=== PATIENT | female | born 1965 | race Caucasian/White ===

== ENCOUNTER → 2016-05-19 | Outpatient (CLI) | payer OTHER, BC ==
[~2016-05-19] MED LIST: CALCTAB5 PO; LEVO50TA PO; LEVO75TA PO; VALA1TAB PO
--- NOTE | 2016-05-19 13:58 | DIAGNOSTIC IMAGING REPORT ---
RIGHT HAND MIN 3 VIEWS ROUTINE CLINICAL HISTORY: Right hand pain COMPARISON: None. DISCUSSION: No fractures or dislocations are visualized. There are no erosive or destructive changes. IMPRESSION: No significant bony abnormalities. Electronically signed by: Dilip Chen M.D. 05/19/2016 1:57 PM Dictated Date/Time: 05/19/2016 1:56 PM
== END | disposition home or self-care (01) ==
LOC: C.RAD1850 13:01
PROVIDERS: ATTEND Emergency Medicine
DX: M79.641 Pain in right hand (principal)

== ENCOUNTER → 2016-06-25 | Outpatient (CLI) | payer BC | END | disposition home or self-care (01) | LOC: C.PAPS 12:25 | PROVIDERS: ATTEND Obstetrics & Gynecology | DX: Z01.419 Encounter for gynecological examination (general) (routine) without abnormal findings (principal) ==

== ENCOUNTER → 2016-07-10 | Outpatient (CLI) | payer OTHER, BC ==
--- NOTE | 2016-07-10 12:52 | MAMMOGRAPHY REPORT ---
BILATERAL DIGITAL SCREENING MAMMOGRAM WITH CAD: 07/10/2016 CLINICAL HISTORY: Routine screening. Patient has no complaints. TECHNIQUE: Current study was also evaluated with a Computer Aided Detection (CAD) system. Bilatera l CC and MLO views including implant displaced views were obtained. COMPARISON: Comparison is made to exams dated: 07/08/2015 mammogram, 07/05/2014 mammogram, 06/23/2013 m ammogram, 06/22/2012 mammogram, 06/17/2011 mammogram, and 06/09/2010 mammogram - [facility] nt. BREAST COMPOSITION: The tissue of both breasts is heterogeneously dense, which may obscure small ma sses. FINDINGS: No suspicious masses, calcifications, or areas of architectural distortion are noted in e ither breast. There has been no significant interval change compared to prior exams. Bilateral subp ectoral saline implants are stable in appearance. IMPRESSION: ACR BI-RADS CATEGORY 2: BENIGN There is no mammographic evidence of malignancy. A 1 year screening mammogram is recommended. The p atient will receive written notification of the results. Approximately 10% of breast cancers are not detected with mammography. A negative mammographic repor t should not delay biopsy if a clinically suggestive mass is present. Juanita Jones M.D. ah/:07/10/2016 07:46:49 Manager Test: Shawnee SAUNDERS(Wyatt)(M), [facility] letter sent: Normal 1/2 BI-RADS Code: ACR BI-RADS Category 2: Benign
== END | disposition home or self-care (01) ==
LOC: C.MAMM 07:29
PROVIDERS: ATTEND Obstetrics & Gynecology
DX: Z12.31 Encounter for screening mammogram for malignant neoplasm of breast (principal)

== ENCOUNTER → 2017-01-18 | Outpatient (CLI) | payer BC ==
--- NOTE | 2017-01-18 08:16 | DIAGNOSTIC IMAGING REPORT ---
ULTRASOUND EXAM AAA SCREEN CLINICAL HISTORY: Abdominal bloating. COMPARISON STUDY: No previous studies for comparison. FINDINGS: The caliber of the abdominal aorta is normal. The proximal abdominal aorta measures 2.5 cm in caliber. The mid abdominal aorta measures 2 cm and the distal abdominal aorta measures 1.8 cm. The caliber of the proximal bilateral common iliac arteries is normal. IMPRESSION: No abdominal aortic aneurysm. Electronically signed by: Martín Barfield M.D. 01/18/2017 8:15 AM Dictated Date/Time: 01/18/2017 8:14 AM
== END | disposition home or self-care (01) ==
LOC: C.ULTRBC 07:39
PROVIDERS: ATTEND Physician Assistant
DX: R14.0 Abdominal distension (gaseous) (principal)

== ENCOUNTER 2017-03-31 20:33 | Emergency (ER) | payer BC, OTHER ==
[~2017-03-31] VITALS: Ht 165.1 cm; Wt 59.6 kg
[2017-03-31 20:53] VITALS: TEMP 36.7; Ht 165.1 cm; Wt 59.6 kg
[2017-03-31] MEDS ORDERED: ALUMINUM/MAGNESIUM SUSP 30 ML UDC PO STA (22:16)
[2017-03-31] MEDS ORDERED: LIDOCAINE HCL 2% VISC SOLN 20 ML UDC PO STA (22:16)
--- NOTE | 2017-03-31 22:42 | DIAGNOSTIC IMAGING REPORT ---
CHEST ONE VIEW PORTABLE CLINICAL HISTORY: CHEST PAIN dyspnea COMPARISON STUDY: No previous studies for comparison. FINDINGS: The bones soft tissues and hemidiaphragms are normal. The cardiomediastinal silhouette is normal. The lungs are clear. The pulmonary vasculature is normal. IMPRESSION: Negative chest. The above report was generated using voice recognition software. It may contain grammatical, syntax or spelling errors. Electronically signed by: Sandor Dewitt M.D. 03/31/2017 10:41 PM Dictated Date/Time: 03/31/2017 10:41 PM
[2017-03-31 22:57] LABS: BASO % 0.5 %; BASO ABS # 0.03 K/uL (0-0.2); EOS % 4.4 %; EOS ABS # 0.25 K/uL (0-0.5); HEMATOCRIT 40.3 % (37-47); HEMOGLOBIN 13.9 g/dL (12.0-16.0); IG# 0.01 K/uL (0.00-0.02); LYMPH % 44.6 %; LYMPH ABS # 2.54 K/uL (1.2-3.4); MEAN CELL VOLUME 88.8 fL (80-100); MEAN CORPUSCULAR HEMOGLOBIN 30.6 pg (25-34); MEAN CORPUSCULAR HGB CONC 34.5 g/dl (32-36); MONO % 8.3 %; MONO ABS # 0.47 K/uL (0.11-0.59); NEUT ABS # 2.39 K/uL (1.4-6.5); PLATELET COUNT 210 K/uL (130-400); RED CELL DISTRIBUTION WIDTH SD 42.6 fL (36.4-46.3); WHITE BLOOD COUNT 5.69 K/uL (4.8-10.8)
[2017-03-31 23:17] LABS: ALBUMIN 4.4 gm/dl (3.4-5.0); ALT/SGPT 21 U/L (12-78); AST/SGOT 14 U/L (15-37); BLOOD UREA NITROGEN 18 mg/dl (7-18); CALCIUM 9.7 mg/dl (8.5-10.1); CARBON DIOXIDE 28 mmol/L (21-32); CREATININE 1.12 mg/dl (0.60-1.20); GLUCOSE 97 mg/dl (70-99); LIPASE 211 U/L (73-393); POTASSIUM 3.8 mmol/L (3.5-5.1); SODIUM 139 mmol/L (136-145)
[2017-03-31 23:28] LABS: ALKALINE PHOSPHATASE 103 U/L (45-117); TOTAL PROTEIN 8.6 gm/dl (6.4-8.2)
[2017-04-01] MEDS ORDERED: PANTOprazole SOD 40 MG TAB PO STA (00:02)
[2017-04-01] MEDS ORDERED: PANT40TA PO (00:14)
[2017-04-01 00:27] VITALS: BP 118/66; PULSE 77; O2SAT 97
--- NOTE | 2017-04-01 04:27 | EMERGENCY ROOM VISIT NOTE ---
History First contact with patient: 22:04 Chief Complaint: RESPIRATORY PROBLEMS Stated Complaint: BREATHING ISSUES, SKIPPING HEART BEATS History of Present Illness The patient is a 51 year old female who presents to the Emergency Room with complaints of intermittent skipped beats since November 2016 had a Holter monitor that showed PVCs along with occasional dyspnea for the past day. Patient also complains of epigastric discomfort with bloating for the past few days. She has been under more stress lately. Patient denies chest pain, fevers , cough, recent illness, vomiting, diarrhea, back pain, leg pain or swelling, recent travel, hormone replacement. No family history of blood clots or heart disease. No prior stress test or echo. She has an appointment next week with cardiology for her skipped beats. No excessive caffeine use. No supplement use. Review of Systems An 10 system review of systems was completed with positives and pertinent negatives listed in the HPI. Past Medical/Surgical History Hypothyroidism, tubal ligation, breast augmentation Social History Smoking Status: Never Smoker Smokeless Tobacco Use: No Drug Use: none Marital Status: Housing Status: lives with family Current/Historical Medications Scheduled Levothyroxine Sodium (Synthroid), 50 MCG PO DAILY Pantoprazole (Protonix), 40 MG PO DAILY Physical Exam Vital Signs Date Time Temp Pulse Resp B/P (MAP) Pulse Ox O2 Delivery O2 Flow Rate FiO2 04/01/17 00:27 77 18 118/66 97 03/31/17 23:14 77 20 118/75 99 Room Air 03/31/17 20:53 36.7 67 20 135/75 100 Room Air Physical Exam VITALS: Vitals are noted on the nurse's note and reviewed by myself. Vital signs stable. GENERAL: Pleasant female, in no acute distress, nondiaphoretic, well-developed well-nourished. SKIN: The skin was without rashes, erythema, edema, or bruising. There is no tenting of the skin. Capillary reflex less than 2 seconds. HEAD: Normocephalic atraumatic. EARS: External auditory canals clear EYES: Pupils equal round and reactive to light and accommodation. Conjunctivae without injection, sclerae without icterus. NOSE: Patent, turbinates without inflammation or discharge. MOUTH: Mucous membranes moist. Pharynx without erythema or exudate. Uvula midline. Airway patent. Tongue does not deviate. NECK: Supple without nuchal rigidity. No lymphadenopathy. No thyromegaly. Cervical spine is nontender. No JVD. HEART: Regular rate and rhythm without murmurs gallops or rubs. LUNGS: Clear to auscultation bilaterally without wheezes, rales or rhonchi. No dullness to percussion. No retractions or accessory muscle use. ABDOMEN: Positive bowel sounds x 4. Normal tympanic percussion. Soft, nontender, without masses or organomegaly. Wilson sign negative. No guarding or rebound tenderness. MUSCULOSKELETAL: No muscle atrophy, erythema, or edema noted. NEURO: Patient was alert and oriented to person place and time. . No focal neurological deficits. Medical Decision & Procedures Laboratory Results 03/31/17 22:16 Red Blood Count 4.54, Mean Corpuscular Volume 88.8, Mean Corpuscular Hemoglobin 30.6, Mean Corpuscular Hemoglobin Concent 34.5, Mean Platelet Volume 11.0, Neutrophils (%) (Auto) 42.0, Lymphocytes (%) (Auto) 44.6, Monocytes (%) (Auto) 8.3, Eosinophils (%) (Auto) 4.4, Basophils (%) (Auto) 0.5, Neutrophils # (Auto) 2.39, Lymphocytes # (Auto) 2.54, Monocytes # (Auto) 0.47, Eosinophils # (Auto) 0.25, Basophils # (Auto) 0.03 03/31/17 22:16 Test 03/31/17 22:16 03/31/17 22:42 White Blood Count 5.69 K/uL (4.8-10.8) Red Blood Count 4.54 M/uL (4.2-5.4) Hemoglobin 13.9 g/dL (12.0-16.0) Hematocrit 40.3 % (37-47) Mean Corpuscular Volume 88.8 fL (80-100) Mean Corpuscular Hemoglobin 30.6 pg (25-34) Mean Corpuscular Hemoglobin Concent 34.5 g/dl (32-36) Platelet Count 210 K/uL (130-400) Mean Platelet Volume 11.0 fL (7.4-10.4) Neutrophils (%) (Auto) 42.0 % Lymphocytes (%) (Auto) 44.6 % Monocytes (%) (Auto) 8.3 % Eosinophils (%) (Auto) 4.4 % Basophils (%) (Auto) 0.5 % Neutrophils # (Auto) 2.39 K/uL (1.4-6.5) Lymphocytes # (Auto) 2.54 K/uL (1.2-3.4) Monocytes # (Auto) 0.47 K/uL (0.11-0.59) Eosinophils # (Auto) 0.25 K/uL (0-0.5) Basophils # (Auto) 0.03 K/uL (0-0.2) RDW Standard Deviation 42.6 fL (36.4-46.3) RDW Coefficient of Variation 13.0 % (11.5-14.5) Immature Granulocyte % (Auto) 0.2 % Immature Granulocyte # (Auto) 0.01 K/uL (0.00-0.02) Anion Gap 8.0 mmol/L (3-11) Est Creatinine Clear Calc Drug Dose 52.3 ml/min Estimated GFR () 64.9 Estimated GFR (Non- 56.0 BUN/Creatinine Ratio 15.7 (10-20) Calcium Level 9.7 mg/dl (8.5-10.1) Magnesium Level 2.3 mg/dl (1.8-2.4) Total Bilirubin 0.7 mg/dl (0.2-1) Direct Bilirubin 0.2 mg/dl (0-0.2) Aspartate Amino Transf (AST/SGOT) 14 U/L (15-37) Alanine Aminotransferase (ALT/SGPT) 21 U/L (12-78) Alkaline Phosphatase 103 U/L (45-117) Troponin I < 0.015 ng/ml (0-0.045) Total Protein 8.6 gm/dl (6.4-8.2) Albumin 4.4 gm/dl (3.4-5.0) Lipase 211 U/L (73-393) Thyroid Stimulating Hormone (TSH) 1.090 uIu/ml (0.300-4.500) Bedside D-Dimer 325 ng/mlFEU (0-450) Bedside Troponin I < 0.030 ng/ml (0-0.045) Medications Administered Medications (Trade) Dose Ordered Sig/Donna Route Start Time Stop Time Status Last Admin Dose Admin Lidocaine HCl (Viscous Lidocaine 2% Soln) 10 ml NOW STAT PO 03/31/17 22:16 2/14/18 22:17 DC 03/31/17 22:26 10 ML Al Hydroxide/Mg Hydroxide (Maalox Susp) 30 ml NOW STAT PO 03/31/17 22:16 03/31/17 22:17 DC 03/31/17 22:26 30 ML Pantoprazole Sodium (Protonix Tab) 40 mg NOW STAT PO 04/01/17 00:02 04/01/17 00:03 DC 04/01/17 00:14 40 MG ED Course Prior records/ancillary studies reviewed. Triage Nursing notes reviewed. Additional history obtained from family The patient's history was concerning for palpitations with mild dyspnea and epigastric discomfort. Differential diagnosis: Etiologies such as GERD, gastritis, anxiety, premature contractions, electrolyte abnormality, cardiac dysrhythmia, thyroid dysfunction, pulmonary embolism, infection, gastrointestinal, as well as others were entertained. Physical examination: Benign as above. ER treatment provided: GI cocktail On reassessment the patient felt better. Diagnostic interpretation by me: Cardiac monitoring revealed occasional PVC. The electrocardiogram was negative for pathologic change. Normal sinus, normal intervals, no acute ST-T wave changes, rate of 63. Impression normal sinus rhythm interpreted by myself The labs revealed negative d-dimer. Negative troponin. Euthyroid. Imaging studies: Chest x-ray as above. This appears to be consistent with ongoing palpitations most likely PVCs and reflux. Patient felt much better after he medicated as above. Her symptoms have resolved. She is advised to keep her appointment as scheduled with cardiology next week and to take the PPI as instructed. She is advised to follow-up family here in a few days or here in the ER sooner for chest pain, difficulty breathing, prolonged palpitations, abdominal pain, worsening signs or symptoms or as needed. Patient did not have acute abdomen on exam. She was well-appearing. She had an unremarkable workup as above. By the evaluation outlined above emergent etiologies such as electrolyte abnormality, cardiac dysrhythmia, thyroid dysfunction, pulmonary embolism, infection, as well as others were deemed relatively unlikely. Patient had a negative d-dimer. Well score is low. The pt informed about the findings as listed above. All questions were answered and pleased with the treatment. Return instructions were outlined and the patient was discharged in stable condition. Outpatient prescription management: Protonix Referral: The patient was referred back to their primary care physician for follow-up in 2 to 3 days for a recheck of the current condition Case reviewed with my attending Medical Decision As above Medication Reconcilliation Current Medication List: was personally reviewed by me Blood Pressure Screening Patient's blood pressure: Normal blood pressure Impression Primary Impression: Palpitations Additional Impression: GERD (gastroesophageal reflux disease) Departure Information Dispostion Home / Self-Care Condition GOOD Prescriptions Pantoprazole (Protonix) 40 Mg Tab 40 MG PO DAILY for 14 Days, #14 TAB Prov: Alyssa Cary ., ROSA M 04/01/17 Forms WORK / SCHOOL INSTRUCTIONS, HOME CARE DOCUMENTATION FORM, IMPORTANT VISIT INFORMATION Patient Instructions GERD, GERD Lifestyle Changes, Heart Palpitations, [facility] Additional Instructions Follow-up as scheduled with the sales and in home delivery specialist for your ongoing skipped heartbeat. Protonix 40 m tablet daily for next 2 weeks. Take this on an empty stomach. Try Maalox or Zantac for breakthrough symptoms for reflux. Avoid large meals. Avoid acidic foods. Rest and drink plenty of fluids as tolerated. Continue current medications. Avoid strenuous activities and anything that worsens your pain. Resume normal activities once your symptoms resolve. Return to the ER immediately for worsening or persistent chest pain, abdominal pain, black or blood in your stools, vomiting, fevers, chest pains, difficulty breathing, worsening of your condition, or as needed. Follow up with your primary physician in 2-3 days for a recheck of your current condition. Problem Qualifiers
== END 2017-04-01 00:28 | disposition home or self-care (01) ==
LOC: C.EDB 20:34 → C.EDC 04-01 00:28
DX: R00.2 Palpitations (principal); K21.9 Gastro-esophageal reflux disease without esophagitis; E03.9 Hypothyroidism, unspecified; Z98.51 Tubal ligation status; Z79.899 Other long term (current) drug therapy

== ENCOUNTER 2017-04-04 20:07 | Emergency (ER) | payer OTHER ==
[~2017-04-04] VITALS: Ht 165.1 cm; Wt 59.1 kg
[~2017-04-04 20:07] MED LIST changes: -CALCTAB5 PO; -LEVO75TA PO; +PANT40TA PO; -VALA1TAB PO
[2017-04-04 20:14] VITALS: TEMP 36.7; Ht 165.1 cm; Wt 59.1 kg
[2017-04-04] MEDS ORDERED: SODIUM CHLORIDE 0.9% 1000ML 1,000 ML IV STA (20:40)
[2017-04-04 20:48] VITALS: O2SAT 100
--- NOTE | 2017-04-04 20:49 | EMERGENCY ROOM VISIT NOTE ---
History Report prepared by Jennifer: Desire Youngblood Under the Supervision of: Dr. Jaime Irving M.D. First contact with patient: 20:33 Chief Complaint: CHEST PAIN Stated Complaint: CHEST PAIN/SKIPPED BEATS History of Present Illness The patient is a 51 year old female who presents to the Emergency Room with complaints of intermittent chest pain that started earlier today. She notes she had an episode of chest pain earlier today and another one a couple of hours ago. She notes the pain is a "stabbing" pain. She reports the episodes of pain do not last long. She states she is also experiencing back pain but it did not occur at the same time as the chest pain. The patient notes the pain is the worst when she tries to take a deep breath. She states she has a history of heart palpitations and stomach pain since November. She notes she has seen her PCP for those symptoms. She states she was in the ED 5 days ago with similar symptoms and all tests were negative. The patient denies any fevers, chills, nausea, vomiting, diarrhea, or cough. She denies any history of cancer. Source of History: patient Onset: earlier today Position: chest Quality: stabbing Timing: intermittent Associated Symptoms: + back pain, No fevers, No chills, No cough, No nausea , No vomiting, No diarrhea Review of Systems See HPI for pertinent positives and negatives. A total of ten systems were reviewed and were otherwise negative. Past Medical & Surgical Stomach problems. Family History Cancer Diabetes mellitus Hypertension Social History Smoking Status: Never Smoker Drug Use: none Marital Status: Housing Status: lives with family Current/Historical Medications Scheduled Levothyroxine Sodium (Synthroid), 50 MCG PO 5XWK Levothyroxine Sodium (Levothyroxine Sodium), 75 MCG PO 2XWK Multivitamins/Minerals (Mvi With Minerals), 1 TAB PO DAILY Pantoprazole (Protonix), 40 MG PO DAILY Probiotic Product (Probiotic), 1 CAP PO DAILY Allergies Coded Allergies: No Known Allergies (Verified , 04/04/17) Physical Exam Vital Signs Date Time Temp Pulse Resp B/P (MAP) Pulse Ox O2 Delivery O2 Flow Rate FiO2 04/04/17 22:22 75 18 117/77 98 Room Air 04/04/17 20:54 65 04/04/17 20:48 100 Room Air 04/04/17 20:14 36.7 71 18 151/77 99 Room Air Physical Exam GENERAL: Awake, alert, anxious appearing, in no distress HENT: Normocephalic, atraumatic. Oropharynx unremarkable. Dry mucus membranes. EYES: Normal conjunctiva. Sclera non-icteric. NECK: Supple. No nuchal rigidity. FROM. No JVD. RESPIRATORY: Clear to auscultation. CARDIAC: Regular rate, normal rhythm. Extremities warm and well perfused. Pulses equal. ABDOMEN: Soft, non-distended. No tenderness to palpation. No rebound or guarding. No masses. RECTAL: Deferred. MUSCULOSKELETAL: Chest examination reveals no tenderness. The back is symmetrical on inspection without obvious abnormality. There is no CVA tenderness to palpation. No joint edema. LOWER EXTREMITIES: Calves are equal size bilaterally and non-tender. No edema. No discoloration. NEURO: Normal sensorium. No sensory or motor deficits noted. SKIN: No rash or jaundice noted. Medical Decision & Procedures Laboratory Results 04/04/17 20:40 Red Blood Count 4.34, Mean Corpuscular Volume 88.2, Mean Corpuscular Hemoglobin 29.3, Mean Corpuscular Hemoglobin Concent 33.2, Mean Platelet Volume 11.3, Neutrophils (%) (Auto) 40.5, Lymphocytes (%) (Auto) 47.1, Monocytes (%) (Auto) 7.1, Eosinophils (%) (Auto) 4.7, Basophils (%) (Auto) 0.4, Neutrophils # (Auto) 2.16, Lymphocytes # (Auto) 2.51, Monocytes # (Auto) 0.38, Eosinophils # (Auto) 0.25, Basophils # (Auto) 0.02 04/04/17 20:40 Test 04/04/17 20:40 White Blood Count 5.33 K/uL (4.8-10.8) Red Blood Count 4.34 M/uL (4.2-5.4) Hemoglobin 12.7 g/dL (12.0-16.0) Hematocrit 38.3 % (37-47) Mean Corpuscular Volume 88.2 fL (80-100) Mean Corpuscular Hemoglobin 29.3 pg (25-34) Mean Corpuscular Hemoglobin Concent 33.2 g/dl (32-36) Platelet Count 216 K/uL (130-400) Mean Platelet Volume 11.3 fL (7.4-10.4) Neutrophils (%) (Auto) 40.5 % Lymphocytes (%) (Auto) 47.1 % Monocytes (%) (Auto) 7.1 % Eosinophils (%) (Auto) 4.7 % Basophils (%) (Auto) 0.4 % Neutrophils # (Auto) 2.16 K/uL (1.4-6.5) Lymphocytes # (Auto) 2.51 K/uL (1.2-3.4) Monocytes # (Auto) 0.38 K/uL (0.11-0.59) Eosinophils # (Auto) 0.25 K/uL (0-0.5) Basophils # (Auto) 0.02 K/uL (0-0.2) RDW Standard Deviation 41.1 fL (36.4-46.3) RDW Coefficient of Variation 12.8 % (11.5-14.5) Immature Granulocyte % (Auto) 0.2 % Immature Granulocyte # (Auto) 0.01 K/uL (0.00-0.02) Anion Gap 11.0 mmol/L (3-11) Est Creatinine Clear Calc Drug Dose 57.4 ml/min Estimated GFR () 72.7 Estimated GFR (Non- 62.8 BUN/Creatinine Ratio 16.1 (10-20) Calcium Level 8.9 mg/dl (8.5-10.1) Total Bilirubin 0.2 mg/dl (0.2-1) Direct Bilirubin mg/dl (0-0.2) Aspartate Amino Transf (AST/SGOT) 12 U/L (15-37) Alanine Aminotransferase (ALT/SGPT) 19 U/L (12-78) Alkaline Phosphatase 94 U/L (45-117) Troponin I < 0.015 ng/ml (0-0.045) Total Protein 7.6 gm/dl (6.4-8.2) Albumin 3.8 gm/dl (3.4-5.0) Lipase 214 U/L (73-393) Laboratory results reviewed by me Medications Administered Medications (Trade) Dose Ordered Sig/Donna Route Start Time Stop Time Status Last Admin Dose Admin Sodium Chloride 1,000 ml @ 999 mls/hr Q1H1M STAT IV 04/04/17 20:40 04/04/17 21:40 DC 04/04/17 20:40 999 MLS/HR ECG Per My Interpretation Indication: chest pain Rate (beats per minute): 66 Rhythm: normal sinus Findings: no acute ischemic change, other (normal axis) ED Course 2032: The patient was evaluated in room C11B. A complete history and physical exam was performed. Medical Decision I reviewed the patient's past medical history, medications, and the nursing notes as described above. Differential diagnosis: Etiologies such as cardiac ischemia, aortic dissection, pulmonary embolism, pneumonia, pneumothorax, musculoskeletal, infections, pericarditis, myocarditis , esophageal rupture, gastrointestinal, as well as others were entertained. The patient is a 51 y/o woman who presents to the emergency department with CP and palpitations per HPI. On arrival the patient is anxious appearing but in NAD , AFVSS. 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 Today, EKG unremarkable. Troponin negative. WBC wnl. Labs otherwise unremarkable. CXR negative for PNA. Heart score, 1, low risk. ACS unlikely. Negative D-dimer on last ED visit thus PE not likely. Patient has previously completed 2 day holter monitor with no findings per patient. She previously decline a 30 day holter monitor, however given her recurrent sx I encourage the patient to consider this. Patient has cardiology appointment scheduled for . Findings and plan for follow-up reviewed with patient. Patient agreeable and d/c'd per discharge instructions. Medication Reconcilliation Current Medication List: was personally reviewed by me Impression Primary Impression: Substernal precordial chest pain Scribe Attestation The scribe's documentation has been prepared under my direction and personally reviewed by me in its entirety. I confirm that the note above accurately reflects all work, treatment, procedures, and medical decision making performed by me. Departure Information Dispostion Home / Self-Care Referrals No Doctor, Assigned (PCP) Patient Instructions ED Chest Pain Atypical Unkn Cause, My [facility] Additional Instructions Please follow up with your primary care physician as well as cardiology as you have scheduled on for re-evaluation and possible additional testing such as a 30 day holter monitor. The cause of your symptoms is unclear at this time. Otherwise, your exam, EKG, chest xray, and lab results did not show signs of an emergent condition at this time. Drink plenty of fluids to ensure hydration. Return to the emergency department for worsening symptoms as described in the accompanying instructions.
[2017-04-04] MEDS ORDERED: LEVO75TA5 PO (21:01)
[2017-04-04] MEDS ORDERED: MISCCAP80 PO (21:02)
[2017-04-04] MEDS ORDERED: MULT-513 PO (21:02)
[2017-04-04 21:03] LABS: BASO % 0.4 %; BASO ABS # 0.02 K/uL (0-0.2); EOS % 4.7 %; EOS ABS # 0.25 K/uL (0-0.5); HEMATOCRIT 38.3 % (37-47); HEMOGLOBIN 12.7 g/dL (12.0-16.0); IG# 0.01 K/uL (0.00-0.02); LYMPH % 47.1 %; LYMPH ABS # 2.51 K/uL (1.2-3.4); MEAN CELL VOLUME 88.2 fL (80-100); MEAN CORPUSCULAR HEMOGLOBIN 29.3 pg (25-34); MEAN CORPUSCULAR HGB CONC 33.2 g/dl (32-36); MEAN PLATELET VOLUME 11.3 fL (7.4-10.4); MONO % 7.1 %; MONO ABS # 0.38 K/uL (0.11-0.59); NEUT % 40.5 %; NEUT ABS # 2.16 K/uL (1.4-6.5); PLATELET COUNT 216 K/uL (130-400); RED CELL DISTRIBUTION WIDTH CV 12.8 % (11.5-14.5); RED CELL DISTRIBUTION WIDTH SD 41.1 fL (36.4-46.3); WHITE BLOOD COUNT 5.33 K/uL (4.8-10.8)
[2017-04-04 21:40] LABS: ALBUMIN 3.8 gm/dl (3.4-5.0); ALKALINE PHOSPHATASE 94 U/L (45-117); ALT/SGPT 19 U/L (12-78); AST/SGOT 12 U/L (15-37); BLOOD UREA NITROGEN 16 mg/dl (7-18); CALCIUM 8.9 mg/dl (8.5-10.1); CARBON DIOXIDE 26 mmol/L (21-32); CREATININE 1.02 mg/dl (0.60-1.20); GLUCOSE 101 mg/dl (70-99); LIPASE 214 U/L (73-393); POTASSIUM 3.7 mmol/L (3.5-5.1); SODIUM 140 mmol/L (136-145); TOTAL PROTEIN 7.6 gm/dl (6.4-8.2)
--- NOTE | 2017-04-04 21:50 | DIAGNOSTIC IMAGING REPORT ---
CHEST ONE VIEW PORTABLE HISTORY: Atypical CHEST PAIN COMPARISON: Chest 03/31/2017. FINDINGS: The lungs are clear. Cardiac silhouette is normal in size. No pleural effusions. No pneumothorax. IMPRESSION: No acute process. Electronically signed by: Barney Carrillo M.D. 04/04/2017 9:48 PM Dictated Date/Time: 04/04/2017 9:47 PM
[2017-04-04 22:22] VITALS: BP 117/77; PULSE 75; O2SAT 98
== END 2017-04-04 22:26 | disposition home or self-care (01) ==
LOC: C.EDB 20:07 → C.EDC 22:26
DX: R07.2 Precordial pain (principal); Z83.3 Family history of diabetes mellitus; Z82.49 Family history of ischemic heart disease and other diseases of the circulatory system

== ENCOUNTER 2023-06-25 19:05 | Observation (INO) ==
[2023-06-25 19:44] LABS: Basophils # (auto) 0.04 K/uL (0.00-0.20); Basophils % (auto) 0.7 %; Eosinophils % (auto) 8.5 %; Hematocrit (blood only) 42.3 % (37.0-47.0); Immature Granulocytes # (auto) 0.01 K/uL (0.01-0.20); Immature Granulocytes % (auto) 0.2 %; Lymphocytes % (auto) 45.7 %; Mean Corpuscular Hemoglobin 29.3 pg (25.0-34.0); Mean Corpuscular Hgb Conc 33.1 g/dL (32.0-36.0); Mean Corpuscular Volume 88.5 fL (80.0-100.0); Monocytes % (auto) 8.5 %; Neutrophils # (auto) 2.16 K/uL (1.40-6.50); Neutrophils % (auto) 36.4 %; Platelet Count 243 K/uL (130-400); RDW Coefficient of Variation 12.7 % (11.5-14.5); RDW Standard Deviation 41.1 fL (36.4-46.3); Red Blood Count 4.78 M/uL (4.20-5.40); White Blood Count 5.91 K/ul (4.8-10.8)
[2023-06-25 19:51] LABS: INR 1.1 (0.9-1.1); Partial Thromboplastin Time 28 Seconds (21-31); Prothrombin Time 11.4 Seconds (9.0-12.0)
[2023-06-25 20:10] LABS: Albumin Globulin Ratio 1.5 (0.9-2); Albumin Level 4.7 gm/dl (3.4-5.0); BUN Creatinine Ratio 15.6 (10-20); Bilirubin,Total 0.5 mg/dl (0.2-1.0); Calcium 9.8 mg/dl (8.6-10.3); Creatinine Clr Calc Pharmacy 58.1 ml/min; Est GFR (African American) 81.1 ml/min; Globulin 3.2 gm/dl (2.5-4.0); Potassium 3.7 mmol/L (3.5-5.1); Total Protein 7.9 gm/dl (6.0-8.3)
[2023-06-25 20:17] LABS: Troponin I High Sensitivity 3.5 pg/ml (0-14)
--- NOTE | 2023-06-25 20:43 | Emergency Department Note ---
Impression & Plan Heart palpitations, Chest pain, Abdominal pain, epigastric ED Provider Note NAME: MARY ANN ZRAATE AGE: 57 SEX: Female INFORMANT: Patient ED PROVIDER(S): Jono Kim MD CHIEF COMPLAINT: Palpitations PLAN: Disposition: Admitted Outpatient prescription management: none Referral: None MEDICAL DECISION MAKING: Patient presented because of palpitations. Initial ECG did not show any dysrhythmia nor did cardiac monitoring. She had some epigastric tenderness on examination. She does carry history of PSVT. She does she has been taking her prescribed medications. She was recently prescribed Cardizem but has not started this. The patient had an unremarkable CBC and chemistry panel. Initial cardiac troponin was within normal limits. Patient underwent CT imaging as she has never had any CT imaging of her abdomen before. This was negative. Patient was found to have a chronic reflux as well as mild chronic gastritis noted on her recent EGD. H. pylori was negative. The patient had a repeat cardiac troponin performed. The second troponin was still within normal limits but there was a significant delta. Following protocol the patient will need an additional time for monitoring and repeat cardiac troponin. Discussed further management in the hospital with the patient and she was very much in agreement as she felt very uncomfortable with the initial onset of symptoms. Consultation was made with Dr. Saad Domínguez of the [facility] service. Patient was evaluated in the ER for further management. Care/management discussed with: none Level of care consideration(s): After review of the information above and other included data, I feel the patient requires escalation of care to admission. Triage Nursing notes: reviewed and agree them. Vital Signs: reviewed and remarkable for no significant abnormalities Additional History obtained from: none Chronic Medical/Social Conditions affecting care: none Prior/ Outside/ External records reviewed: I did review her recent cardiology note from 2 days ago. The patient had prescription Cardizem ordered. They noted her M cot monitoring did not find any significant issues and the patient was reporting no symptoms during the monitoring time. Differential Diagnosis: Dysrhythmia, cardiac ischemia, aortic dissection, pulmonary embolism, pneumothorax, pneumonia, pericarditis, myocarditis, esophageal rupture, GERD, cholecystitis, pancreatitis, musculoskeletal, as well as other pathologies. Dysrhythmia, Diagnostics, independently interpreted by me: ECG: Twelve-lead ECG reveals normal sinus rhythm at 72 bpm. Low voltage QRS. When compared to 04/08/2023 there is no significant change. No ST elevation or depression. Cardiac Monitoring: Cardiac monitoring ordered by me: The patient was placed on continuous cardiac monitoring and observed. It revealed a normal sinus rhythm at 60 beats per minute without ectopy or evidence of dysrhythmia. Medical decision rules: none Imaging studies: Chest x-ray. Findings: A chest x-ray was performed and revealed no pneumothorax, effusion, infiltrate, pulmonary edema, free air under the diaphragm, or wide mediastinum. Impression: No acute disease. I refer you to the EMR for further details. HPI: 57 year old Female arrives for evaluation of abdominal pain and palpitations. This started one hour [place] and is improved. The patient also notes the following associated symptoms, none. Notes abdominal pain started first. Hx of similar issues. EGD 2 weeks ago showed "stomach inflammation". On acid reducers. The patient has took no new medication for relieving factors. Current pain is rated as 3/10. Pt also notes using flecanide for irregular heartbeat. Pt denies LOC, headache, fevers, chills, diaphoresis, visual changes, neck pain, chest pain, breathing difficulties, nausea, vomiting, back pain, melena, hematochezia, urinary symptoms, numbness, weakness, lymphadenopathy, rash, or other complaints. PAST MEDICAL HISTORY: See Below, PSVT PAST SURGICAL HISTORY: See Below, SOCIAL HISTORY: See Below, no smoking HOME MEDICATIONS: See Below ALLERGIES: See Below VITALS: See Below PHYSICAL EXAMINATION: GENERAL: Awake, alert, well-appearing, in no distress HENT: Normocephalic, atraumatic. Oropharynx unremarkable. EYES: Normal conjunctiva. Sclera non-icteric. NECK: Inspection normal. Non-tender. Supple. No nuchal rigidity. FROM. No masses. RESPIRATORY: Clear to auscultation. No wheezes. No rales. Normal respiratory effort. CARDIAC: Normal rate. Normal rhythm. No murmurs. No rubs. Extremities warm and well perfused. Pulses equal. No JVD. GI: Soft, non-distended. No tenderness to palpation. No rebound or guarding. No masses. RECTAL: Deferred. MUSCULOSKELETAL: Atraumatic. Chest examination reveals no tenderness. The back is symmetrical on inspection without obvious abnormality. There is no CVA tenderness to palpation. No joint edema. LOWER EXTREMITIES: Calves are equal size bilaterally and non-tender. No edema. No discoloration. NEURO: Normal sensorium. No sensory or motor deficits noted. SKIN: No rash or jaundice noted. PROCEDURES: none CRITICAL CARE: none OBSERVATION NOTE: none Past Med/Surg History Medical History Abdominal pain History of paroxysmal supraventricular tachycardia History of COVID-19 (~2020) Hx of insomnia GERD (gastroesophageal reflux disease) Hypothyroidism Surgical History Hx of colonoscopy Hx of breast surgery History of loop electrosurgical excision procedure (LEEP) S/P breast biopsy, right (09/13/18) History of bilateral tubal ligation H/O laparoscopy H/O tooth extraction S/P conization of cervix H/O breast implant Family History Mother Diabetes Hyperlipidemia Hypertension Pulmonary fibrosis Grandmother (Maternal) Diabetes Aunt Lung cancer Denies family history of Ovarian cancer Prostate cancer Myocardial infarction Breast cancer Colorectal cancer Stroke Social History Smoking Status: Never smoker Second Hand Exposure: No; Do You Dip or Chew Tobacco: No; Hx Alcohol Use: No Hx Substance Use: No Preferred Language: [place] Citizen Communication Ability: Effective Military Communications Specialist Required: No Beliefs That Will Affect Care: None marital status: Current Living Situation: Alone Feels Safe at Home: Yes Dental Care, Regularly: Yes Seatbelt Use: always Sunscreen Use: Yes Assistive Devices: Glasses Allergies Allergies Allergy/AdvReac Type Severity Reaction Status Date / Time nitrofurantoin AdvReac Unknown Gastrointestinal Verified 06/23/23 13:32 [From Macrobid] Upset Home Meds Home Medications Medication Instructions Recorded Confirmed levothyroxine 75 mcg tablet 75 mcg PO QAM 04/08/23 06/25/23 cyclobenzaprine 5 mg tablet 5 mg PO TID PRN Muscle Spasm 06/25/23 06/25/23 multivitamin (Multiple Vitamins 1 tab PO DAILY 06/25/23 06/25/23 tablet) Previous Rx's Medication Instructions Recorded flecainide 50 mg tablet 50 mg PO BID #180 tabs 10/01/22 esomeprazole magnesium 40 mg 40 mg PO DAILY #30 caps 06/11/23 capsule,delayed release diltiazem HCl 120 mg 120 mg PO DAILY #90 caps 06/23/23 capsule,extended release 24 hr Results & Data (ED) Vital Signs Vital Signs - 24 hr 06/25/23 19:14 06/25/23 20:49 06/25/23 21:05 Temperature 36.8 C Temperature Source Temporal Artery Scan Pulse Rate 77 71 Pulse Rate [Apical] 75 Pulse Rate from SpO2 Sensor Pulse Rhythm [Apical] Regular Pulse Strength [Apical] Normal Respiratory Rate 18 18 Respiratory Effort / Characteristics Non-Labored Spontaneous Respiratory Depth Normal Normal Respiratory Pattern Blood Pressure 150/72 H Blood Pressure [Right Arm] 119/67 Blood Pressure Mean 98 Blood Pressure Mean [Right Arm] 84 Blood Pressure Position Sitting Pulse Oximetry 100 99 Oxygen Delivery Method Room Air Room Air Sepsis Recent Fever Within 48 Hours No Sepsis New/Unexplained Change in Mental Status No Sepsis Action Taken by Nursing No Action Required 06/25/23 23:00 06/26/23 00:00 06/26/23 00:58 Temperature Temperature Source Pulse Rate 61 57 L Pulse Rate [Apical] 58 L Pulse Rate from SpO2 Sensor 57 L Pulse Rhythm [Apical] Regular Pulse Strength [Apical] Normal Respiratory Rate 18 18 Respiratory Effort / Characteristics Non-Labored Spontaneous Respiratory Depth Normal Respiratory Pattern Blood Pressure 121/75 Blood Pressure [Right Arm] 112/69 Blood Pressure Mean 90 Blood Pressure Mean [Right Arm] 83 Blood Pressure Position Pulse Oximetry 99 100 Oxygen Delivery Method Room Air Room Air Sepsis Recent Fever Within 48 Hours Sepsis New/Unexplained Change in Mental Status Sepsis Action Taken by Nursing 06/26/23 02:00 Temperature Temperature Source Pulse Rate Pulse Rate [Apical] 55 L Pulse Rate from SpO2 Sensor Pulse Rhythm [Apical] Regular Pulse Strength [Apical] Respiratory Rate 18 Respiratory Effort / Characteristics Non-Labored Spontaneous Respiratory Depth Normal Respiratory Pattern Regular Blood Pressure Blood Pressure [Right Arm] 122/79 Blood Pressure Mean Blood Pressure Mean [Right Arm] 93 Blood Pressure Position Pulse Oximetry 98 Oxygen Delivery Method Room Air Sepsis Recent Fever Within 48 Hours Sepsis New/Unexplained Change in Mental Status Sepsis Action Taken by Nursing Laboratory Data 06/25/23 19:25 06/25/23 19:25 Lab Results 06/25/23 06/25/23 Range/Units 19:25 Unknown WBC 5.91 (4.8-10.8) K/ul RBC 4.78 (4.20-5.40) M/uL Hgb 14.0 (12.0-16.0) g/dl Hct 42.3 (37.0-47.0) % MCV 88.5 (80.0-100.0) fL MCH 29.3 (25.0-34.0) pg MCHC 33.1 (32.0-36.0) g/dL RDW Std Deviation 41.1 (36.4-46.3) fL RDW Coeff of Komal 12.7 (11.5-14.5) % Plt Count 243 (130-400) K/uL MPV 11.0 (9.4-12.4) fL Immature Gran % (Auto) 0.2 % Neut % (Auto) 36.4 % Lymph % (Auto) 45.7 % [place] % (Auto) 8.5 % Eos % (Auto) 8.5 % Baso % (Auto) 0.7 % Neut # (Auto) 2.16 (1.40-6.50) K/uL Lymph # (Auto) 2.70 (1.20-3.40) K/uL [place] # (Auto) 0.50 (0.11-0.59) K/uL Eos # (Auto) 0.50 (0.00-0.50) K/uL Baso # (Auto) 0.04 (0.00-0.20) K/uL Immature Gran # (Auto) 0.01 (0.01-0.20) K/uL PT 11.4 (9.0-12.0) Seconds INR 1.1 (0.9-1.1) APTT 28 (21-31) Seconds PTT Ratio 1.0 Sodium 138 (136-145) mmol/L Potassium 3.7 (3.5-5.1) mmol/L Chloride 103 (98-107) mmol/L Carbon Dioxide 28 (21-32) mmol/L Anion Gap 7 (3-11) BUN 14 (6-23) mg/dl Creatinine 0.90 (0.6-1.2) mg/dl Est Cr Clr Drug Dosing 58.1 ml/min Est GFR ( Amer) 81.1 ml/min Est GFR (Non-Af Amer) 70.0 ml/min BUN/Creatinine Ratio 15.6 (10-20) Glucose 124 H (70-99(Fasting)) mg/dl Calcium 9.8 (8.6-10.3) mg/dl Magnesium 2.1 (1.7-2.4) mg/dl Total Bilirubin 0.5 (0.2-1.0) mg/dl AST 13 (13-39) U/L ALT 10 (7-52) U/L Alkaline Phosphatase 73 (34-104) U/L Troponin I High Sens 3.5 12.7 D (0-14) pg/ml Total Protein 7.9 (6.0-8.3) gm/dl Albumin 4.7 (3.4-5.0) gm/dl Globulin 3.2 (2.5-4.0) gm/dl Albumin/Globulin Ratio 1.5 (0.9-2) Lipase 38 (11-82) U/L Administered Medications Discontinued Medications Potassium Chloride (K [place] / Wtr) 10 meq in 100 mls @ 100 mls/hr IV ONE ONE Stop: 06/26/23 02:18 Last Admin: 06/26/23 01:45 Dose: 100 mls/hr Documented By: [facility] Ioversol (Optiray 320 100ml) 93 ml IV ONCE ONE Stop: 06/25/23 21:43 Last Admin: 06/25/23 21:42 Dose: 93 ml Documented By: [facility] Imaging Data Radiologist's Impression: Abdomen/Pelvis CT 06/25/23 21:10 Exam(s): CT ABDOMEN + PELVIS With Contrast IV Amt: 93 ml optiray 320 EXAM: CT Abdomen and Pelvis With Intravenous Contrast CLINICAL HISTORY: Upper abd pain. TECHNIQUE: Axial computed tomography images of the abdomen and pelvis with intravenous contrast. CTDI is 9.84 mGy and DLP is 428.73 mGy-cm. Automated exposure control was utilized for the study. A dose lowering technique was utilized adhering to the principles of ALARA. CONTRAST: Patient received 93 ml optiray 320 of IV contrast COMPARISON: No relevant prior studies available. FINDINGS: Lung bases: Unremarkable. No mass. No consolidation. ABDOMEN: Liver: Unremarkable. No mass. Gallbladder and bile ducts: Unremarkable. No calcified stones. No ductal dilation. Pancreas: Unremarkable. No mass. No ductal dilation. Spleen: Unremarkable. No splenomegaly. Adrenals: Unremarkable. No mass. Kidneys and ureters: No obstructive uropathy. No obstructing renal or ureteral calculi. No hydronephrosis or hydroureter. Stomach and bowel: No obstruction or ileus. Abundant stool throughout the colon. No evidence for diverticulitis. PELVIS: Appendix: No findings to suggest acute appendicitis. Bladder: Partially contracted with nonspecific wall thickening. No mass. Reproductive: Uterus and ovaries are grossly unremarkable. ABDOMEN and PELVIS: Intraperitoneal space: No free air. No free fluid. Bones/joints: No acute fracture. Degenerative changes of the spine. 7 mm anterior subluxation of L4 and L5. Soft tissues: Partially visualized bilateral breast implants. Vasculature: Unremarkable. No abdominal aortic aneurysm. Lymph nodes: Unremarkable. No enlarged lymph nodes. IMPRESSION: No bowel obstruction or ileus. Abundant stool throughout the colon. Degenerative changes of the spine. Electronically signed by: Maximo Rose M.D. 06/25/23 22:55 PM Discharge Plan Visit Data Chief Complaint: Arrhythmia/Palpitations Stated Complaint: HEART BEATING FAST, ABD PAIN ED Provider: Jono Kim Discharge Problem: Heart palpitations, Chest pain, Abdominal pain, epigastric Forms Stand Alone Forms: My [facility] Prescriptions Prescriptions: No Action flecainide 50 mg tablet 50 mg PO BID Qty: 180 3RF diltiazem HCl 120 mg capsule,extended release 24hr 120 mg PO DAILY Qty: 90 3RF levothyroxine 75 mcg tablet 75 mcg PO QAM esomeprazole magnesium 40 mg capsule,delayed release(DR/EC) 40 mg PO DAILY Qty: 30 5RF cyclobenzaprine 5 mg tablet 5 mg PO TID PRN (Reason: Muscle Spasm) multivitamin [Multiple Vitamins] Tablet 1 tab PO DAILY Referrals Referrals: Dillon Moya MD [Primary Care Provider] -
[2023-06-25] MEDS: OPTIRAY 320 100ml IV ONE (21:42)
--- NOTE | 2023-06-25 22:56 | CT Scan Report ---
Exam(s): CT ABDOMEN + PELVIS With Contrast IV Amt: 93 ml optiray 320 EXAM: CT Abdomen and Pelvis With Intravenous Contrast CLINICAL HISTORY: Upper abd pain. TECHNIQUE: Axial computed tomography images of the abdomen and pelvis with intravenous contrast. CTDI is 9.84 mGy and DLP is 428.73 mGy-cm. Automated exposure control was utilized for the study. A dose lowering technique was utilized adhering to the principles of ALARA. CONTRAST: Patient received 93 ml optiray 320 of IV contrast COMPARISON: No relevant prior studies available. FINDINGS: Lung bases: Unremarkable. No mass. No consolidation. ABDOMEN: Liver: Unremarkable. No mass. Gallbladder and bile ducts: Unremarkable. No calcified stones. No ductal dilation. Pancreas: Unremarkable. No mass. No ductal dilation. Spleen: Unremarkable. No splenomegaly. Adrenals: Unremarkable. No mass. Kidneys and ureters: No obstructive uropathy. No obstructing renal or ureteral calculi. No hydronephrosis or hydroureter. Stomach and bowel: No obstruction or ileus. Abundant stool throughout the colon. No evidence for diverticulitis. PELVIS: Appendix: No findings to suggest acute appendicitis. Bladder: Partially contracted with nonspecific wall thickening. No mass. Reproductive: Uterus and ovaries are grossly unremarkable. ABDOMEN and PELVIS: Intraperitoneal space: No free air. No free fluid. Bones/joints: No acute fracture. Degenerative changes of the spine. 7 mm anterior subluxation of L4 and L5. Soft tissues: Partially visualized bilateral breast implants. Vasculature: Unremarkable. No abdominal aortic aneurysm. Lymph nodes: Unremarkable. No enlarged lymph nodes. IMPRESSION: No bowel obstruction or ileus. Abundant stool throughout the colon. Degenerative changes of the spine. Electronically signed by: Maximo Rose M.D. 06/25/23 22:55 PM
[2023-06-26 00:06] LABS: Troponin I High Sensitivity 12.7 pg/ml (0-14)
--- NOTE | 2023-06-26 01:32 | History & Physical Report ---
Date of Service June 26, 2023 Assessment & Plan (1) PSVT (paroxysmal supraventricular tachycardia): (2) Hypothyroidism: (3) Gastritis: (4) Heart palpitations: (5) Schatzki's ring of distal esophagus: (6) Hiatal hernia: Plan PSVT/palpitations- The patient will be admitted to telemetry for serial cardiac enzymes, serial EKG's, cardiac rhythm monitoring and a 2-D echocardiogram with Dopplers. No history of previous echo Continue flecainide 50 mg p.o. twice daily Optimize potassium 3.7: KCl 10 mill equivalent K rider x 1, NSS + KCl 20 mill equivalents at 100 mL/h x 500 mL Magnesium level normal at 2.1 Repeat laboratories in a.m.: Renal function panel, magnesium and troponin Initial troponin was 3.5, follow-up 12.7. Most likely secondary to increased heart rate Hold Cardizem CD, which she still has as pending from her outpatient pharmacy, as baseline heart rate is 60 She is more willing to consider EPS studies at this point Consult cardiology Hypothyroidism- Add TSH with reflex to T4 to ED labs Continue levothyroxine if labs okay Gastritis/Schatzki ring/hiatal hernia/GERD- Patient does not feel any improvement on Nexium Magnesium level normal at 2.1 History of Present Illness Chief Complaint: Patient presents to the emergency department with complaint of a 15-minute episode of rapid heart rate, significantly longer than any previous episodes that she has had Primary Care Provider: Dillon Moya MD The patient is a 57-year-old female with a past medical history including PSVT, heart palpitations, PACs, PVCs, hypothyroidism and GERD. She presents with symptoms as noted above. She was most recently seen in the cardiology office on 06/23/2023, with plans to continue flecainide 50 mg p.o. twice daily, but then added Cardizem CD 120 mg every morning. She is presently waiting for the Cardizem CD to come from her pharmacy. She has had symptomatic reflux, and has undergone an EGD and colonoscopy on 06/11/2023, which showed a mild Schatzki ring that underwent dilation, a small hiatal hernia, and mild inflammation in the gastric antrum. She was started on Nexium 40 mg daily, which she reports at this point has not made any significant improvement in the symptoms. Upon arrival to the emergency department, the patient was in normal sinus rhythm. Allergies Allergy/AdvReac Type Severity Reaction Status Date / Time nitrofurantoin AdvReac Unknown Gastrointestinal Verified 06/23/23 13:32 [From Macrobid] Upset Home Medications Medication Instructions Recorded Confirmed Type flecainide 50 mg tablet 50 mg PO BID #180 tabs 10/01/22 06/25/23 Rx levothyroxine 75 mcg tablet 75 mcg PO QAM 04/08/23 06/25/23 History esomeprazole magnesium 40 mg 40 mg PO DAILY #30 caps 06/11/23 06/25/23 Rx capsule,delayed release diltiazem HCl 120 mg 120 mg PO DAILY #90 caps 06/23/23 06/25/23 Rx capsule,extended release 24 hr cyclobenzaprine 5 mg tablet 5 mg PO TID PRN Muscle Spasm 06/25/23 06/25/23 History multivitamin (Multiple Vitamins 1 tab PO DAILY 06/25/23 06/25/23 History tablet) Past Med/Surg History Medical History (Updated 06/26/23 @ 02:51 by Saad Domínguez MD) Hiatal hernia Schatzki's ring of distal esophagus Gastritis Abdominal pain reason for EGD History of paroxysmal supraventricular tachycardia [place]. Sepulved[place] [facility] [place] of COVID-19 (~2020) not hospitalized, resolved Hx of insomnia GERD (gastroesophageal reflux disease) Hypothyroidism Surgical History Hx of colonoscopy Hx of breast surgery right side, scar tissue removed History of loop electrosurgical excision procedure (LEEP) S/P breast biopsy, right (09/13/18) benign History of bilateral tubal ligation H/O laparoscopy with fulguration of oviducts H/O tooth extraction S/P conization of cervix H/O breast implant bilateral Family History Mother Diabetes Hyperlipidemia Hypertension Pulmonary fibrosis Grandmother (Maternal) Diabetes Aunt Lung cancer Denies family history of Ovarian cancer Prostate cancer Myocardial infarction Breast cancer Colorectal cancer Stroke Social History Smoking Status: Never smoker Second Hand Exposure: No; Do You Dip or Chew Tobacco: No; Hx Alcohol Use: No Hx Substance Use: No Preferred Language: Rwandan Communication Ability: Effective Ambulatory Technologist Required: No Beliefs That Will Affect Care: None marital status: Current Living Situation: Alone Feels Safe at Home: Yes Dental Care, Regularly: Yes Seatbelt Use: always Sunscreen Use: Yes Assistive Devices: Glasses Review of Systems Review of Systems: The patient denies chest pain, shortness of breath, dyspnea on exertion, cough, lower extremity swelling, sore throat, fevers, chills, sweats, weight change, fatigue, nausea, vomiting, diarrhea , constipation, pelvic pain, blood in urine or stool, dysuria, urinary frequency or urgency, lightheadedness, dizziness, headache, memory loss, loss of consciousness, rash, abnormal bruising or bleeding, imbalance, focal or generalized weakness, numbness or tingling in arms or legs, generalized arthralgias or myalgias, back or neck pain, or night sweats. The review of systems is otherwise negative other than for that already noted above, and at least 10 systems have been reviewed. Physical Exam Physical Exam: The patient is awake, alert and oriented 3, well developed and well nourished, normocephalic and atraumatic, lying in bed and in no acute distress. HEENT--PERRL, EOMI, mucous membranes and oropharynx dry. Neck--supple. No JVD. No bruits. Thyroid normal, trachea midline, no adenopathy. Heart--normal S1 and S2. No murmurs, rubs or gallops. Lungs--clear bilaterally, no respiratory distress, no accessory muscle use. Abdomen--normal bowel sounds and soft. Nontender. Nondistended, no hernias or masses, no organomegaly. Extremities--no cyanosis or clubbing. No edema. There are good distal pulses b/l. Dermatologic--normal skin turgor, normal color, no abnormal lymph nodes, no rash. Neurologic--cranial nerves II through XII grossly intact. Rheumatologic--normal range of motion. Psychiatric--normal affect. Results & Data Results & Data Vital Signs (Past 12 Hours) Vital Signs Temp Pulse Pulse Resp BP BP Pulse Ox 06/26/23 00:58 57 L 06/26/23 00:00 61 18 121/75 100 06/25/23 23:00 58 L 18 112/69 99 06/25/23 21:05 75 18 119/67 99 06/25/23 20:49 71 06/25/23 19:14 36.8 C 77 18 150/72 H 100 O2 Del Method 06/26/23 00:58 06/26/23 00:00 Room Air 06/25/23 23:00 Room Air 06/25/23 21:05 Room Air 06/25/23 20:49 06/25/23 19:14 Room Air Laboratory Results Laboratory Results WBC 5.91 K/ul (4.8-10.8) 06/25/23 19:25 RBC 4.78 M/uL (4.20-5.40) 06/25/23 19:25 Hgb 14.0 g/dl (12.0-16.0) 06/25/23 19:25 Hct 42.3 % (37.0-47.0) 06/25/23 19:25 MCV 88.5 fL (80.0-100.0) 06/25/23 19: MCH 29.3 pg (25.0-34.0) 06/25/23 19: MCHC 33.1 g/dL (32.0-36.0) 06/25/23 19: RDW Std Deviation 41.1 fL (36.4-46.3) 06/25/23 19: RDW Coeff of Komal 12.7 % (11.5-14.5) 06/25/23 19:25 Plt Count 243 K/uL (130-400) 06/25/23 19:25 MPV 11.0 fL (9.4-12.4) 06/25/23 19:25 Immature Gran % (Auto) 0.2 % 06/25/23 19:25 Neut % (Auto) 36.4 % 06/25/23 19:25 Lymph % (Auto) 45.7 % 06/25/23 19:25 [place] % (Auto) 8.5 % 06/25/23 19:25 Eos % (Auto) 8.5 % 06/25/23 19:25 Baso % (Auto) 0.7 % 06/25/23 19:25 Neut # (Auto) 2.16 K/uL (1.40-6.50) 06/25/23 19:25 Lymph # (Auto) 2.70 K/uL (1.20-3.40) 06/25/23 19:25 [place] # (Auto) 0.50 K/uL (0.11-0.59) 06/25/23 19:25 Eos # (Auto) 0.50 K/uL (0.00-0.50) 06/25/23:25 Baso # (Auto) 0.04 K/uL (0.00-0.20) 06/25/23 19:25 Immature Gran # (Auto) 0.01 K/uL (0.01-0.20) 06/25/23: PT 11.4 Seconds (9.0-12.0) 06/25/23: INR 1.1 (0.9-1.1) 06/25/23: APTT 28 Seconds (21-31) 06/25/23: PTT Ratio 1.0 06/25/23 19: Sodium 138 mmol/L (136-145) 06/25/23:25 Potassium 3.7 mmol/L (3.5-5.1) 06/25/23: Chloride 103 mmol/L (98-107) 06/25/23:25 Carbon Dioxide 28 mmol/L (21-32) 06/25/23 19:25 Anion Gap 7 (3-11) 06/25/23:25 BUN 14 mg/dl (6-23) 06/25/23: Creatinine 0.90 mg/dl (0.6-1.2) 06/25/23: Est Cr Clr Drug Dosing 58.1 ml/min 06/25/23 19:25 Est GFR ( Amer) 81.1 ml/min 06/25/23:25 Est GFR (Non-Af Amer) 70.0 ml/min 06/25/23:25 BUN/Creatinine Ratio 15.6 (10-20) 06/25/23: Glucose 124 mg/dl (70-99(Fasting)) H 06/25/23:25 Calcium 9.8 mg/dl (8.6-10.3) 06/25/23: Magnesium 2.1 mg/dl (1.7-2.4) 06/25/23 19:25 Total Bilirubin 0.5 mg/dl (0.2-1.0) 06/25/23 19:25 AST 13 U/L (13-39) 06/25/23 19:25 ALT 10 U/L (7-52) 06/25/23 19:25 Alkaline Phosphatase 73 U/L (34-104) 06/25/23 19:25 Troponin I High Sens 12.7 pg/ml (0-14) D 06/25/23 Unknown Total Protein 7.9 gm/dl (6.0-8.3) 06/25/23 19:25 Albumin 4.7 gm/dl (3.4-5.0) 06/25/23 19:25 Globulin 3.2 gm/dl (2.5-4.0) 06/25/23 19:25 Albumin/Globulin Ratio 1.5 (0.9-2) 06/25/23 19:25 Lipase 38 U/L (11-82) 06/25/23 19:25 Impressions Abdomen/Pelvis CT 06/25/23 21:10 Exam(s): CT ABDOMEN + PELVIS With Contrast IV Amt: 93 ml optiray 320 EXAM: CT Abdomen and Pelvis With Intravenous Contrast CLINICAL HISTORY: Upper abd pain. TECHNIQUE: Axial computed tomography images of the abdomen and pelvis with intravenous contrast. CTDI is 9.84 mGy and DLP is 428.73 mGy-cm. Automated exposure control was utilized for the study. A dose lowering technique was utilized adhering to the principles of ALARA. CONTRAST: Patient received 93 ml optiray 320 of IV contrast COMPARISON: No relevant prior studies available. FINDINGS: Lung bases: Unremarkable. No mass. No consolidation. ABDOMEN: Liver: Unremarkable. No mass. Gallbladder and bile ducts: Unremarkable. No calcified stones. No ductal dilation. Pancreas: Unremarkable. No mass. No ductal dilation. Spleen: Unremarkable. No splenomegaly. Adrenals: Unremarkable. No mass. Kidneys and ureters: No obstructive uropathy. No obstructing renal or ureteral calculi. No hydronephrosis or hydroureter. Stomach and bowel: No obstruction or ileus. Abundant stool throughout the colon. No evidence for diverticulitis. PELVIS: Appendix: No findings to suggest acute appendicitis. Bladder: Partially contracted with nonspecific wall thickening. No mass. Reproductive: Uterus and ovaries are grossly unremarkable. ABDOMEN and PELVIS: Intraperitoneal space: No free air. No free fluid. Bones/joints: No acute fracture. Degenerative changes of the spine. 7 mm anterior subluxation of L4 and L5. Soft tissues: Partially visualized bilateral breast implants. Vasculature: Unremarkable. No abdominal aortic aneurysm. Lymph nodes: Unremarkable. No enlarged lymph nodes. IMPRESSION: No bowel obstruction or ileus. Abundant stool throughout the colon. Degenerative changes of the spine. Electronically signed by: Maximo Rose M.D. 06/25/23 22:55 PM Code Status & VTE Plan Code Status Full code VTE Prophylaxis Plan VTE Prophylaxis will be ordered: Yes PG Care Time/CCT Total # of Minutes Spent Total Time Spent with Patient: Total time spent is greater than 50% in coordination of care (as documented) at patient's floor/unit and/or counseling patient: Coding Level of Care Code 80266 INT INP/OBS CARE 3/75MIN Diagnoses PSVT (paroxysmal supraventricular tachycardia) I47.1 Hypothyroidism E03.9 Gastritis K29.70 Heart palpitations R00.2 Schatzki's ring of distal esophagus K22.2 Hiatal hernia K44.9
[2023-06-26 01:42] LABS: Magnesium 2.1 mg/dl (1.7-2.4)
[2023-06-26] MEDS: POTASSIUM CHLORIDE / WTR 10 MEQ/100 ML PLCT IV ONE (01:45)
[2023-06-26 03:37] LABS: Thyroid Stimulating Hormone 0.615 uIu/ml (0.300-4.500)
[2023-06-26] MEDS ORDERED: CYCLOBENZAPRINE HCL 5 MG TAB PO PRN (03:45)
[2023-06-26] MEDS ORDERED: ACETAMINOPHEN 325 MG TAB PO PRN (03:45)
[2023-06-26] MEDS: NSS + 20MEQ KCL 20 MEQ/1,000 ML BAG IV SCH (04:30)
[2023-06-26] MEDS: LEVOTHYROXINE SODIUM 75 MCG TABLET PO SCH (06:04)
[2023-06-26 06:24] LABS: BUN Creatinine Ratio 13.8 (10-20); Calcium 9.1 mg/dl (8.6-10.3); Creatinine Clr Calc Pharmacy 68.1 ml/min; Est GFR (African American) 93.5 ml/min; Est GFR (Non-African American) 80.7 ml/min; Magnesium 2.1 mg/dl (1.7-2.4); Phosphorus 3.6 mg/dl (2.5-4.9); Potassium 4.1 mmol/L (3.5-5.1)
[2023-06-26] MEDS: FLECAINIDE ACETATE 100 MG TABLET PO SCH (06:38)
--- NOTE | 2023-06-26 07:01 | Electrocardiogram Report ---
Test Reason : Blood Pressure : / mmHG Vent. Rate : 072 BPM Atrial Rate : 072 BPM P-R Int : 176 ms QRS Dur : 086 ms QT Int : 380 ms P-R-T Axes : 069 -02 071 degrees QTc Int : 416 ms Normal sinus rhythm Low voltage QRS Borderline ECG When compared with ECG of 08-APR-2023 08:09, Borderline criteria for Lateral infarct are no longer Present Confirmed by Guillermo Lu ([id number]) on 06/26/2023 7:00:49 AM Referred By: REFERRED SELF Confirmed By:Rafael Lu
--- NOTE | 2023-06-26 07:24 | XRay Report ---
XR chest 1V not portable CLINICAL HISTORY: Chest pain, nonspecific TECHNIQUE: Single frontal radiograph of the chest was obtained. Comparison: Comparison is made to chest radiograph 04/08/2023 FINDINGS: No lines and tubes are seen. The cardiomediastinal silhouette is normal. The lungs are clear. No evid ence of pleural effusion or pneumothorax. IMPRESSION: No acute chest disease. ACT 112: Negative or not required by law. Electronically signed by: Keanu Krause M.D. 06/26/2023 7:22 AM
[2023-06-26 08:58] LABS: Troponin I High Sensitivity 7.7 pg/ml (0-14)
[2023-06-26] MEDS: MULTIVITAMIN TAB PO SCH (09:11)
--- NOTE | 2023-06-26 09:40 | Cardiology Consultation ---
Date of Consultation June 26, 2023 Assessment & Plan (1) Heart palpitations: Plan 1. Palpitations: She has a long history of palpitations. In the past she has had documented atrial and ventricular ectopy and this seemed to be the precipitant for prescribing flecainide. She has described extended episodes of palpitation recently. However, no extended arrhythmia has been documented. She carries a diagnosis of SVT based on very brief runs of atrial ectopy during monitoring in 2017. It is curious that no arrhythmia was documented at the time of her admission last evening despite her report that she continued to have symptoms in the emergency room. We described options for treatment. She was prescribed diltiazem in the outpatient setting which she has not started. She had some concerns about hypotension or side effects. At this point she elected not to start diltiazem. We did discuss options for catheter based therapy or evaluation. This is been mentioned to her in the outpatient setting. However, without a documented arrhythmia the likelihood of finding a treatable arrhythmia is unknown. As such, we elected to pursue an implantable monitor in order to documented arrhythmia and direct more specific treatment if 1 is found. This can be done in the outpatient setting. I think she would be safe for discharge pending any abnormalities on her echocardiogram. I will arrange for an implant in the outpatient setting. She can continue her current medications. History of Present Illness Reason for Consultation: Palpitations Requesting Physician: Sang Attending Physician: Hui Burch MD History of Present Illness The patient is a 57-year-old woman with a history of palpitations and reported SVT along with known atrial and ventricular ectopy. She presented to the emergency room last evening with an episode of extended tachycardia. The patient states that she had some gastrointestinal discomfort for most of the day. In the evening she took her usual dose of flecainide and immediately afterwards began to experience a sense of a rapid heartbeat. This is not appear to be associated with other symptoms such as dizziness or lightheadedness. No associated chest pain. He stated that due to the extended nature of the episode she decided to come to the emergency room for evaluation. By her report she continued to have some symptoms at the time of admission. There was no specific remedy that improved her symptoms but the tachycardia peer to gradually improve over time. This morning he reports feeling well. She states that since the beginning of the year she has had more episodes of palpitation and tachycardia. She has a baseline sensation of skipped beats. These wax and wane in frequency and are not terribly bothersome. He has been present for many years and are the indication for her current use of flecainide. However, she does report occasional episodes of extended palpitations and tachycardia recently. In general she is an active individual. She has not report any specific activity limitations. No exertional dyspnea. No exertional chest pain. She denies dizziness, lightheadedness or history of syncope. However, she has been limiting her activity recently due to concerns about precipitating the tachycardia. Allergies Allergy/AdvReac Type Severity Reaction Status Date / Time nitrofurantoin AdvReac Unknown Gastrointestinal Verified 06/23/23 13:32 [From Macrobid] Upset Home Medications Medication Instructions Recorded Confirmed Type flecainide 50 mg tablet 50 mg PO BID #180 tabs 10/01/22 06/25/23 Rx levothyroxine 75 mcg tablet 75 mcg PO QAM 04/08/23 06/25/23 History esomeprazole magnesium 40 mg 40 mg PO DAILY #30 caps 06/11/23 06/25/23 Rx capsule,delayed release diltiazem HCl 120 mg 120 mg PO DAILY #90 caps 06/23/23 06/25/23 Rx capsule,extended release 24 hr cyclobenzaprine 5 mg tablet 5 mg PO TID PRN Muscle Spasm 06/25/23 06/25/23 History multivitamin (Multiple Vitamins 1 tab PO DAILY 06/25/23 06/25/23 History tablet) Patient History Medical History (Updated 06/26/23 @ 02:51 by Saad Domínguez MD) Hiatal hernia Schatzki's ring of distal esophagus Gastritis Abdominal pain reason for EGD History of paroxysmal supraventricular tachycardia [place]. Sepulved[place] [facility] [place] of COVID-19 (~2020) not hospitalized, resolved Hx of insomnia GERD (gastroesophageal reflux disease) Hypothyroidism Surgical History Hx of colonoscopy Hx of breast surgery right side, scar tissue removed History of loop electrosurgical excision procedure (LEEP) S/P breast biopsy, right (09/13/18) benign History of bilateral tubal ligation H/O laparoscopy with fulguration of oviducts H/O tooth extraction S/P conization of cervix H/O breast implant bilateral Family History Mother Diabetes Hyperlipidemia Hypertension Pulmonary fibrosis Grandmother (Maternal) Diabetes Aunt Lung cancer Denies family history of Ovarian cancer Prostate cancer Myocardial infarction Breast cancer Colorectal cancer Stroke Social History Smoking Status: Never smoker Second Hand Exposure: No; Do You Dip or Chew Tobacco: No; Tobacco Cessation Education Requested by Patient: No Hx Alcohol Use: No Hx Substance Use: No Preferred Language: Icelandic Communication Ability: Effective 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 Mood affect appear normal. She answered all questions appropriately. HEENT: Sclerae are anicteric. Pupils are equal and reactive to light and accommodation. Extraocular movements were intact. Neuro: Cranial nerves intact Lungs: Lungs are clear to auscultation bilaterally. There are no rales wheezes or rhonchi. She has normal respiratory effort without use of accessory muscles. There is normal pulmonary excursion. Cardiac: The rhythm was regular. S1 and S2 were normal. There are no murmurs on examination. The PMI was not markedly displaced on palpation. Abdomen: The abdomen was soft and nontender. Extremities: Patient has bilateral radial pulses that are equal in intensity. There is no evidence cyanosis or clubbing. There was no evidence of significant peripheral edema bilaterally. Skin: There are no rashes noted on examination today. Results & Data Vital Signs (Past 12 Hours) Vital Signs Temp Pulse Pulse Resp BP BP Pulse Ox 06/26/23 08:03 36.5 C 57 L 18 127/72 100 06/26/23 07:09 56 L 06/26/23 03:47 36.4 C L 55 L 18 143/79 H 97 06/26/23 03:45 06/26/23 02:00 55 L 18 122/79 98 06/26/23 00:58 57 L 06/26/23 00:00 61 18 121/75 100 06/25/23 23:00 58 L 18 112/69 99 Pulse Ox O2 Del Method O2 Del Method 06/26/23 08:03 Room Air 06/26/23 07:09 06/26/23 03:47 Room Air 06/26/23 03:45 95 Room Air 06/26/23 02:00 Room Air 06/26/23 00:58 06/26/23 00:00 Room Air 06/25/23 23:00 Room Air Laboratory Results Abnormal Lab Results 06/25/23 06/25/23 06/26/23 19:25 Unknown 05:40 WBC 5.91 RBC 4.78 Hgb 14.0 Hct 42.3 MCV 88.5 MCH 29.3 MCHC 33.1 RDW Std Deviation 41.1 RDW Coeff of Komal 12.7 Plt Count 243 MPV 11.0 Immature Gran % (Auto) 0.2 Neut % (Auto) 36.4 Lymph % (Auto) 45.7 [place] % (Auto) 8.5 Eos % (Auto) 8.5 Baso % (Auto) 0.7 Neut # (Auto) 2.16 Lymph # (Auto) 2.70 [place] # (Auto) 0.50 Eos # (Auto) 0.50 Baso # (Auto) 0.04 Immature Gran # (Auto) 0.01 PT 11.4 INR 1.1 APTT 28 PTT Ratio 1.0 Sodium 138 140 Potassium 3.7 4.1 Chloride 103 107 Carbon Dioxide 28 26 Anion Gap 7 7 BUN 14 11 Creatinine 0.90 0.80 Est Cr Clr Drug Dosing 58.1 68.1 Est GFR ( Amer) 81.1 93.5 Est GFR (Non-Af Amer) 70.0 80.7 BUN/Creatinine Ratio 15.6 13.8 Glucose 124 H 93 Calcium 9.8 9.1 Phosphorus 3.6 Magnesium 2.1 2.1 Total Bilirubin 0.5 AST 13 ALT 10 Alkaline Phosphatase 73 Troponin I High Sens 3.5 12.7 D 7.7 D Total Protein 7.9 Albumin 4.7 4.0 Globulin 3.2 Albumin/Globulin Ratio 1.5 Lipase 38 TSH 0.[address] demonstrated Stool in the colon, but no other acute findings. ECG Additional Comments: EKG at the time admission revealed normal sinus rhythm with incomplete right bundle branch block PG Care Time/CCT Total # of Minutes Spent Total Time Spent with Patient: Total time spent is greater than 50% in coordination of care (as documented) at patient's floor/unit and/or counseling patient: Coding Level of Care Code 17965 IN/OBS CONSULT LVL 4,60M Diagnoses Heart palpitations R00.2
--- NOTE | 2023-06-26 11:20 | XCELERA ---
[id number] \\[id number]
--- NOTE | 2023-06-26 12:09 | Discharge Summary ---
Date of Service June 26, 2023 Admission HPI Per Admitting Provider The patient is a 57-year-old female with a past medical history including PSVT, heart palpitations, PACs, PVCs, hypothyroidism and GERD. She presents with symptoms as noted above. She was most recently seen in the cardiology office on 06/23/2023, with plans to continue flecainide 50 mg p.o. twice daily, but then added Cardizem CD 120 mg every morning. She is presently waiting for the Cardizem CD to come from her pharmacy. She has had symptomatic reflux, and has undergone an EGD and colonoscopy on 06/11/2023, which showed a mild Schatzki ring that underwent dilation, a small hiatal hernia, and mild inflammation in the gastric antrum. She was started on Nexium 40 mg daily, which she reports at this point has not made any significant improvement in the symptoms. Upon arrival to the emergency department, the patient was in normal sinus rhythm. Admission Exam Per Admitting Provider The patient is awake, alert and oriented 3, well developed and well nourished, normocephalic and atraumatic, lying in bed and in no acute distress. HEENT--PERRL, EOMI, mucous membranes and oropharynx dry. Neck--supple. No JVD. No bruits. Thyroid normal, trachea midline, no adenopathy. Heart--normal S1 and S2. No murmurs, rubs or gallops. Lungs--clear bilaterally, no respiratory distress, no accessory muscle use. Abdomen--normal bowel sounds and soft. Nontender. Nondistended, no hernias or masses, no organomegaly. Extremities--no cyanosis or clubbing. No edema. There are good distal pulses b/l. Dermatologic--normal skin turgor, normal color, no abnormal lymph nodes, no rash. Neurologic--cranial nerves II through XII grossly intact. Rheumatologic--normal range of motion. Psychiatric--normal affect. Principal Diagnosis Heart palpitation Discharge Exam General: Well-appearing, NAD Cardiovascular: RRR, no M/R/G Pulmonary: CTAB, no W/R/R Abdomen: Soft, NT/ND, no guarding Extremities: Moving all extremities, no pedal edema Integumentary: No suspicious rash or lesion on exposed skin Neurologic: AAOx3, no focal deficits Psychiatric: Appropriate mood/affect Discharge Data Allergies Allergy/AdvReac Type Severity Reaction Status Date / Time nitrofurantoin AdvReac Unknown Gastrointestinal Verified 06/23/23 13:32 [From Macrobid] Upset Consultations 06/26/23 00:49 ED Decision to Admit Stat 06/26/23 03:45 Consult Cardiology Routine Ordered Studies 06/25/23 21:10 CT Abd and Pelvis [CT abd pelvis IV con only] Stat Hospital Course (1) PSVT (paroxysmal supraventricular tachycardia): (2) Hypothyroidism: (3) Gastritis: (4) Heart palpitations: (5) Schatzki's ring of distal esophagus: (6) Hiatal hernia: Plan Palpitations without identified arrhythmia The patient was admitted to telemetry No history of previous echo, echo inpatient unremarkable Continue flecainide 50 mg p.o. twice daily Potassium repleted Magnesium level normal at 2.1 Initial troponin was 3.5, follow-up 12.7. Most likely secondary to increased heart rate Per discussion with cardiology, patient to not take diltiazem that had been previously prescribed (she never took a dose) Cardiology consulted - plan for implantable loop recorder Hypothyroidism TSH wnls - continue levothyroxine Gastritis/Schatzki ring/hiatal hernia/GERD- Patient does not feel any improvement on Nexium and feels adverse reaction - recommend stopping and discussing with GI Constipation Noted on CT and may explain some of her abdominal symptoms, she notes strain and constipation feeling, recommend daily Miralax until daily soft BMs Total Time Total Time Spent Total Time Spent (In Minutes): 35 Total Time Includes: Examination of the Patient, Discharge Planning, Medication Reconciliation and Communication With Other Providers Discharge Plan Discharge Items Patient Disposition: Home - Self-Care Reason For Visit: PSVT Discharge Diagnosis: Palpitations Activity: Resume your previous activity Non-emergency contact: Primary Care Provider and Senior Interaction Designer Call non-emergency contact if: your symptoms worsen Follow-up/Referrals: ProDillon MD [Primary Care Provider] - 07/06/23 1:30 pm (with KINGSLEY Rich) Diet: Heart Healthy Addtl Attending Provider Instructions: You are admitted with heart palpitations. Unfortunately, no documented arrhythmia was identified. Your blood work, chest x-ray, CT scan of your abdomen and pelvis, and echocardiogram overall were unremarkable. There were findings of some constipation and arthritis of the spine. Given your adverse response to esomeprazole, recommend stopping this and discussing with Dr. Soria alternative options. Per your discussion with Dr. Lu, recommend holding off on initiating diltiazem. Continue your other medications. Plan to follow-up for implantable monitor. Pending Studies at Discharge: No (Cardiology planning for implantable monitor outpatient) Stand-Alone Forms: My [facility], Smoking Cessation Medications and DC Order Prescriptions: Continued flecainide 50 mg tablet 50 mg PO BID Qty: 180 3RF levothyroxine 75 mcg tablet 75 mcg PO QAM cyclobenzaprine 5 mg tablet 5 mg PO TID PRN (Reason: Muscle Spasm) multivitamin [Multiple Vitamins] Tablet 1 tab PO DAILY Discontinued diltiazem HCl 120 mg capsule,extended release 24hr 120 mg PO DAILY Qty: 90 3RF esomeprazole magnesium 40 mg capsule,delayed release(DR/EC) 40 mg PO DAILY Qty: 30 5RF Discharge Orders: Discharge Order (Routine); Ordered 06/26/23 Ordered By: Hui Burch Admission Data Admit Date/Time: 06/26/23 01:32 Attending Provider: Hui Burch Admit Provider: Saad Domínguez Primary Care Provider: Dillon Moya Other Providers: Saad Domínguez; Guillermo Lu Other Interventions: Discharge Summary Assessment (RN) Last Done: 06/26/23 12:13 Coding Level of Care Code 92377 INP/OBS DISCH >30 MIN Diagnoses PSVT (paroxysmal supraventricular tachycardia) I47.1 Hypothyroidism E03.9 Gastritis K29.70 Heart palpitations R00.2 Schatzki's ring of distal esophagus K22.2 Hiatal hernia K44.9
== END 2023-06-26 12:30 | disposition home or self-care (01) ==
LOC: ED 19:05 → 4W 19:05 → SUATTDRO 06-26 01:32 → 4W 06-26 03:40